=== PATIENT | male | born 1985 | race Caucasian/White ===

== ENCOUNTER 2017-05-29 02:30 | Emergency (ER) | payer SELFPAY ==
[~2017-05-29] VITALS: Ht 167.6 cm; Wt 81.7 kg
[2017-05-29] MEDS ORDERED: NAPROSYN500 MG PO (03:10)
[2017-05-29] MEDS ORDERED: PERCOCET 5/31 TABLET PO (03:10)
[2017-05-29 03:51] VITALS: BP 147/83
== END 2017-05-29 03:52 | disposition home or self-care (01) ==
LOC: EXP 02:30 → EME 02:30 → EXP 03:52
DX: S50.01XA Contusion of right elbow, initial encounter (principal); W20.8XXA Other cause of strike by thrown, projected or falling object, initial encounter; F17.200 Nicotine dependence, unspecified, uncomplicated
CPT/HCPCS: 73080; 99281; 99283